=== PATIENT | female | born 1995 | race Caucasian/White ===

== ENCOUNTER 2019-06-28 09:41 | Emergency (ER) | payer OTHER ==
[~2019-06-28] VITALS: Ht 157.5 cm; Wt 72.6 kg
== END 2019-06-28 11:48 | disposition home or self-care (01) ==
LOC: ED 09:41
DX: S16.1XXA Strain of muscle, fascia and tendon at neck level, initial encounter (principal); S39.012A Strain of muscle, fascia and tendon of lower back, initial encounter; F17.200 Nicotine dependence, unspecified, uncomplicated; V49.9XXA Car occupant (driver) (passenger) injured in unspecified traffic accident, initial encounter
CPT/HCPCS: 99283

== ENCOUNTER 2019-10-17 09:10 | Emergency (ER) | payer SELFPAY ==
[~2019-10-17] VITALS: Ht 157.5 cm; Wt 61.2 kg
[2019-10-17] MEDS ORDERED: CYCLOBENZAPRINE10 MG PO (09:21)
[2019-10-17] MEDS ORDERED: BACTRIM DS TAB1 EACH PO (10:48)
== END 2019-10-17 11:04 | disposition home or self-care (01) ==
LOC: ED 09:10
DX: L02.31 Cutaneous abscess of buttock (principal); F17.200 Nicotine dependence, unspecified, uncomplicated
CPT/HCPCS: 10060; 99283-25

== ENCOUNTER 2019-10-19 05:52 | Emergency (ER) | payer SELFPAY ==
[~2019-10-19] VITALS: Ht 157.5 cm; Wt 61.2 kg
[~2019-10-19 05:52] MED LIST: BACTRIM DS TAB1 EACH PO; CYCLOBENZAPRINE10 MG PO
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
== END 2019-10-19 06:31 | disposition home or self-care (01) ==
LOC: ED 05:52
DX: Z48.01 Encounter for change or removal of surgical wound dressing (principal); F17.200 Nicotine dependence, unspecified, uncomplicated
CPT/HCPCS: 99282

== ENCOUNTER 2020-01-18 12:10 | Emergency (ER) | payer SELFPAY ==
[~2020-01-18] VITALS: Ht 157.5 cm; Wt 74.8 kg
== END 2020-01-18 12:59 | disposition home or self-care (01) ==
LOC: ED 12:10
DX: L05.91 Pilonidal cyst without abscess (principal)

== ENCOUNTER 2020-03-15 08:45 | Day surgery (SDC) | payer BC ==
[~2020-03-15] VITALS: Ht 157.5 cm; Wt 75.9 kg
--- NOTE | 2020-03-15 11:02 | NUR ---
03/15/20 1102 Shalini Zuniga 1054- PT ARRIVES TO PACU TALKING AND ORIENTED. PT REPORTS NO PAIN OR NAUSEA. RESP EVEN AND UNLABORED. OXYGEN SAT HIGH 90'S TO 100% ON RA.
[2020-03-15] MEDS ORDERED: NORCO 7.5-3251 EACH PO (11:18)
--- NOTE | 2020-03-15 12:31 | OR ---
[facility] [address], [place] [address] Signed DATE OF OPERATION: 03/15/2020 SURGEON: Dania Martinez MD PREOPERATIVE DIAGNOSIS: Pilonidal cyst with sinus tract. POSTOPERATIVE DIAGNOSIS: Pilonidal cyst with sinus tract. PROCEDURE: Pilonidal cystectomy. ESTIMATED BLOOD LOSS: None. INDICATIONS: Carol Ann is a 24-year-old female, who is known to have a pilonidal cyst. She has had it incised and drained twice before. She has had continued to break through the skin drain. In fact, she stated that this morning. She had been referred to my office with respect to the above. Carol Ann has already been online reading and made herself very knowledgeable with respect to the pilonidal cyst. I explained to her a pilonidal cystectomy, that we will leave this open and is going to heal secondarily. We also have to follow that sinus tract, which extends off the midline toward the 11 o'clock position. She understands there is risk to the surgery including, but not limited to bleeding, infection, scarring, change in contour of the skin as well as recurrent pilonidal cyst. She had expressed understanding and wished to proceed. DESCRIPTION OF PROCEDURE: I had met with Carol Ann in our preop area. After that, our nurse office agent placed a saddle block. Carol Ann was then taken into our operating room and placed in the prone position with appropriate padding and monitoring. She was given monitored anesthesia care by our nurse office agent. She also received preoperative antibiotics along with her SCDs. She was then prepped and draped in the usual sterile fashion. We made a slightly oblique incision to include the pits in the midline of her gluteal crease and extended that over to the sinus tract as it came to the surface at the 11 o'clock position; that sinus tract was probably 1 cm the left to the midline. We went down around this area with the help of our cautery. We took cultures from wound in this sinus tract; it had a standard granulation tissue. The entire pilonidal cyst with sinus tract was taken out en bloc. The surrounding tissue was quite healthy. We Electronically Signed By: DANIA MARTINEZ MD 03/15/20 1231 PATIENT NAME: CAROL ANN GILBERT OPERATIVE REPORT DATE OF : [birth year] REPORT #: [id number] PHYSICIAN: DANIA MARTINEZ MD PCP: SPENCER STEELE REPORT IS CONFIDENTIAL AND NOT TO BE RELEASED WITHOUT AUTHORIZATION [facility] [address] [place] [id number] Signed injected additional Marcaine with epinephrine into the wound. The wound was irrigated and suctioned out until clear. It was packed with saline-soaked gauze and covered with a dry ABD and mesh underwear. Carol Ann was then rotated into the supine position onto her hospital bed and taken into recovery room in stable condition. She tolerated her procedure quite well. Dania Martinez MD ALB/MODL /[id number] cc: MD Humberto Abad FNP Copies: DANIA MARTINEZ MD, WADE R FNP ~ Electronically Signed By: DANIA MARTINEZ MD 03/15/20 1231 PATIENT NAME: CAROL ANN GILBERT OPERATIVE REPORT DATE OF : [birth year] REPORT #: [id number] PHYSICIAN: DANIA MARTINEZ MD PCP: SPENCER STEELE REPORT IS CONFIDENTIAL AND NOT TO BE RELEASED WITHOUT AUTHORIZATION
--- NOTE | 2020-03-18 11:32 | PATH ---
[facility] [address] [facility] [place] [place] [address] Signed SPECIMEN(S): A PILONIDAL CYST WITH SINUS TRACT SPECIMEN SOURCE: A. PILONIDAL CYST WITH SINUS TRACT CLINICAL HISTORY: Excise pilonidal cyst. FINAL PATHOLOGIC DIAGNOSIS: . Skin and soft tissue, pilonidal cyst with sinus tract, excision: - Pilonidal sinus/cyst with associated exuberant acute and chronic inflammation and evidence of prior rupture. - Overlying acutely inflamed, reactive epidermis. NAL:cml:C2NR MICROSCOPIC EXAMINATION: Histologic sections of all submitted blocks are examined by light microscopy. These findings, together with the gross examination, support the pathologic diagnosis. GROSS DESCRIPTION: The specimen, labeled "BJ," and designated on the requisition "pilonidal cyst with sinus tract," is received in formalin and consists of a portion of brown-santoyo to hemorrhagic soft tissue (4.2 x 2.1 x 2.0 cm) with attached ellipse of pink-santoyo skin (3.7 cm in length x 0.8 cm in width) with a red-brown, centrally ulcerated lesion (1.0 x 0.5 cm from the epidermis surface). The specimen is sectioned to reveal a brown-santoyo to hemorrhagic cyst/sinus (3.7 x 1.4 x 0.7 cm) that communicates with the ulcerated lesion on the epidermal surface. The remaining cut surface shows yellow to brown-santoyo to fatty tissue. Business Data Analyst sections are submitted in cassette (A1). AC (under the direct supervision of a pathologist) The Gross Description was prepared using a voice recognition system. The report was reviewed for accuracy; however, sound-alike word errors, addition and/or deletions may occur. If there is any question about this report, please contact Client Services. PERFORMING LABORATORY: The technical component was performed by [facility], [address] [place] [id number] (Stained Glass Glazier: Vicky Armas MD; CLIA# [id number]). PATIENT NAME: SYED GILBERT PATHOLOGY DATE OF : [birth year] REPORT #: [id number] PHYSICIAN: JCARLOS CARTER PCP: SPENCER STEELE REPORT IS CONFIDENTIAL AND NOT TO BE RELEASED WITHOUT AUTHORIZATION [facility] [address] [place] [id number] Signed Professional interpretation was performed by [facility], [address] [place] [id number] (CLIA# [id number]). Diagnostician: Ila Aquino MD Pathologist Electronically Signed 03/18/2020 Copies: ~ PATIENT NAME: SYED GILBERT PATHOLOGY DATE OF : [birth year] REPORT #: [id number] PHYSICIAN: [facility] PCP: SPENCER STEELE REPORT IS CONFIDENTIAL AND NOT TO BE RELEASED WITHOUT AUTHORIZATION
== END 2020-03-15 11:45 | disposition home or self-care (01) ==
LOC: DS 08:45 → OPS 08:45 → DS 10:30 → OPS 10:30
PROVIDERS: ATTEND Colon & Rectal Surgery
PROC: 0JB90ZZ Excision of Buttock Subcutaneous Tissue and Fascia, Open Approach (ICD-10-PCS; principal; 2020-03-15 09:30)
DX: L05.92 Pilonidal sinus without abscess (principal); L05.91 Pilonidal cyst without abscess; F17.210 Nicotine dependence, cigarettes, uncomplicated
CPT/HCPCS: J0690; J1100; J1644; J1885; J2001; J2250; J2405; J2704; J7121

== ENCOUNTER 2024-01-07 03:25 | Emergency (ER) | payer OTHER ==
[~2024-01-07] VITALS: Ht 157.5 cm; Wt 82.0 kg
[~2024-01-07 03:25] MED LIST changes: +NORCO 7.5-3251 EACH PO
[2024-01-07] MEDS ORDERED: ACETAMINOPHEN/CODEINE #3 1 EA TAB PO ONE (03:45)
[2024-01-07 04:35] VITALS: BP 118/86
== END 2024-01-07 04:38 | disposition home or self-care (01) ==
LOC: ED 03:25
DX: S02.5XXA Fracture of tooth (traumatic), initial encounter for closed fracture (principal); S09.90XA Unspecified injury of head, initial encounter; W17.89XA Other fall from one level to another, initial encounter; F10.129 Alcohol abuse with intoxication, unspecified; F17.200 Nicotine dependence, unspecified, uncomplicated
CPT/HCPCS: 70450; 70486; 72125; 99283-25; A9270